=== PATIENT | male | born 1975 | race Native Hawaiian/Other Pacific Islander ===

== ENCOUNTER 2018-02-13 18:23 | Emergency (ER) | payer OTHER ==
[~2018-02-13] VITALS: Ht 172.7 cm; Wt 106.6 kg
[2018-02-13 19:34] LABS: PLATELET COUNT 194 K/uL (142-355)
[2018-02-13 19:41] LABS: POTASSIUM 3.8 mmol/L (3.6-5.2)
[2018-02-13 23:35] VITALS: BP 140/86; TEMP 98.6
== END 2018-02-13 23:36 | disposition short-term general hospital (02) ==
LOC: ED 18:23
PROVIDERS: Family Medicine
DX: K35.80 Unspecified acute appendicitis (principal)
CPT/HCPCS: 36415; 80053; 81000; 85027; 96374; 96375; 99284; J1885; J2175; J2550; Q9963

== ENCOUNTER 2018-02-13 23:37 | Outpatient (CLI) | payer OTHER | END 2018-02-14 00:05 | disposition short-term general hospital (02) | LOC: AMB 23:37 | DX: K35.80 Unspecified acute appendicitis (principal) | CPT/HCPCS: A0425; A0427 ==